=== PATIENT | female | born 1965 | race Caucasian/White ===

== ENCOUNTER → 2020-08-04 16:15 | Outpatient (CLI) | payer OTHER, SELFPAY ==
--- NOTE | ~2020-08-04 | MM_ITS ---
EXAMINATION: MM screening [facility] BI w [place] HISTORY: Screening mammogram TECHNIQUE: Craniocaudal and mediolateral oblique 3-D tomosynthesis images were obtained and synthetic 2-D images were generated. CAD analysis was submitted and interpreted. COMPARISON: 05/24/2019, 10/15/2017 BREAST PARENCHYMAL COMPOSITION: The breasts are heterogeneously dense, which may obscure small masses . FINDINGS: There is no evidence of suspicious mass, calcification, or architectural distortion to sugg est malignancy in either breast. There has been no suspicious interval change. IMPRESSION: 1. No mammographic evidence of malignancy. 2. Recommend routine screening mammography in one year. BI-RADS Category 1: Negative Reviewed, dictated and finalized at location A. LE CHECKER
== END ==
PROVIDERS: Visit Provider Obstetrics & Gynecology
DX: Z12.31 Encounter for screening mammogram for malignant neoplasm of breast (principal)
CPT/HCPCS: 77063; 77067

== ENCOUNTER 2022-01-29 17:10 | Emergency (ER) | payer OTHER, SELFPAY ==
[2022-01-29 17:30] VITALS: BP 142/86; PULSE 67; RESP 18; TEMP 36.7; O2SAT 96
--- NOTE | 2022-01-29 18:21 | ED.FEMALEGU ---
HPI - Female Genitourinary General Chief complaint: Urogenital-Female Stated complaint: uti complaint Time Seen by Provider: 01/29/22 18:15 Source: patient, RN notes reviewed and old records reviewed Mode of arrival: ambulatory Limitations: no limitations History of Present Illness HPI Narrative: 56-year-old female who presents to [facility] with complaints of urinary burning, urgency, and frequency for the past 2 days. Patient has been taking AZO for her discomfort. Patient denies any suprapubic discomfort or any flank pain in her back. Patient denies any known fevers chills or sweats,She denies any vaginal discharge or itching or any concern for exposure to STDs. Patient reports no nausea or vomiting or any incidence of diarrhea. Patient reports that she has history of past UTI's. MD elicited complaint: UTI Pertinent past history: recurrent UTIs Onset (ago): day(s) (2) Related Data Home Medications Medication Instructions Recorded Confirmed cetirizine 10 mg tablet (Zyrtec) 10 mg PO DAILY 03/14/21 01/29/22 multivitamin 1 tablet PO DAILY 03/14/21 01/29/22 vitamin B complex (B 1 tablet PO DAILY 10/02/21 01/29/22 Complex-Vitamin B12 tablet) cholecalciferol (vitamin D3) 50 50 mcg PO DAILY 11/07/21 11/07/21 mcg (2,000 unit) capsule Allergies Allergy/AdvReac Type Severity Reaction Status Date / Time Sulfa (Sulfonamide Allergy Unknown Itching Verified 01/29/22 17:47 Antibiotics) Review of Systems Review of Systems: CONSTITUTIONAL: Denies fever,positive for some chills, no sweats. EYES: Denies visual changes, redness, or discharge. ENT: Denies rhinorrhea, congestion, sore throat, or otalgia. CARDIOVASCULAR: Denies chest pain, palpitations, or edema. RESPIRATORY: Denies cough or dyspnea. GASTROINTESTINAL: Denies abdominal pain, nausea, vomiting, or diarrhea. GENITOURINARY: Positive for dysuria no visible hematuria. SKIN: Denies rash or itching. MUSCULOSKELETAL: Denies back pain, joint pain, or myalgia. NEUROLOGIC: Denies headache, numbness, or weakness. PSYCHIATRIC: Denies anxiety or depression. [facility] Past Medical History Medical History (Updated 01/30/22 @ 00:55 by Sarah Vogt NP) Essential hypertension Gastroesophageal reflux Mild persistent asthma without complication UTI (urinary tract infection) Vitamin D deficiency Family History Family History Father Family history of cardiovascular disease Social History Social History Second hand tobacco smoke exposure: No Alcohol intake: never Substance use: never Substance use type: does not use Gender identity (if verbalized by the patient): Female Comments At time of signature, agree with nursing past medical, surgical, social and family history. There is no relevant family history pertinent to the presenting complaint Exam Narrative: GENERAL: Well-appearing, well-nourished, and in no acute distress. HEAD: Normocephalic, atraumatic. EYES: PERRLA and EOMI. ENT: Nares clear, no rhinorrhea or epistaxis. Mucous membranes moist.TM's normal with good light reflex, throat pink with no lesions or exudates no tonsil swelling/ NECK: Supple.no lymphadenopathy CHEST: Clear to auscultation. No respiratory distress.SAO2 96% on room air HEART: Regular rate and rhythm. No murmur heard. Normal peripheral pulses. ABDOMEN: Soft, nontender, nondistended, normal active bowel sounds.No CVA tenderness on examination EXTREMITIES: Normal range of motion. No edema. SKIN: Warm, dry, no rash. NEURO: No focal deficits. Alert and oriented x3. Course Course Level of Care: Express Care Visit Vital Signs Vital signs: Vital Signs Temperature 36.7 C 01/29/22 17:30 Pulse Rate 67 01/29/22 17:30 Respiratory Rate 18 01/29/22 17:30 Blood Pressure 142/86 H 01/29/22 17:30 Pulse Oximetry 96 01/29/22 17:30 Oxygen Delivery Room Air 01/29/22 17
== END 2022-01-29 18:39 | disposition home or self-care (01) ==
PROVIDERS: Emergency Provider Registered Nurse; PCP Family Medicine
DX: N39.0 Urinary tract infection, site not specified (principal); I10 Essential (primary) hypertension; K21.9 Gastro-esophageal reflux disease without esophagitis; J45.909 Unspecified asthma, uncomplicated; E55.9 Vitamin D deficiency, unspecified
CPT/HCPCS: 81003; 87086; 87088; 99213; G0463

== ENCOUNTER 2023-05-06 16:01 | Outpatient (CLI) | payer OTHER, SELFPAY ==
--- NOTE | ~2023-05-06 | CT_ITS ---
EXAMINATION: CT hip LT wo con DATE: 05/06/2023 16:32 INDICATION: Left hip pain. TECHNIQUE: Computed tomography (CT) of the left hip was performed without intravenous contrast. Autom ated exposure control and iterative reconstruction technique were employed. The dose-length product w as 604.09 mGy-cm. COMPARISON: None FINDINGS: There is a total left hip arthroplasty in near-anatomic alignment. There is a small area of osteolysis adjacent to a screw hole in the acetabular cup measuring 10 x 2 x 7 mm. No fracture. Ther e is severe lumbar spondylosis. Osteitis pubis is noted. IMPRESSION: 1. Total left hip arthroplasty with small area of osteolysis adjacent to a screw hole in the acetabul ar cup. Reviewed, dictated and finalized at location A. IMPRESSION: 1. Total left hip arthroplasty with small area of osteolysis adjacent to a scre w hole in the acetabular cup.
== END 2023-05-06 16:02 | disposition home or self-care (01) ==
PROVIDERS: PCP Family Medicine
DX: M25.552 Pain in left hip (principal)
CPT/HCPCS: 73700